=== PATIENT | male | born 1940 | race Caucasian/White ===

== ENCOUNTER 2018-06-16 16:57 | Emergency (ER) | payer MEDICARE, BC ==
[2018-06-16 17:57] LABS: BASOPHILS % (AUTO) 0 % (0-3); EOSINOPHILS % (AUTO) 0 % (0-9); HEMATOCRIT 48 % (39-53); HEMOGLOBIN 15.3 gm/dl (13.5-17.7); LYMPHOCYTES % (AUTO) 4.7 % (10-50); MEAN CORPUSCULAR HEMOGLOBIN 29.5 pg (27.0-32.0); MEAN CORPUSCULAR HGB CONC 31.7 gm/dl (32.0-36.0); MEAN CORPUSCULAR VOLUME 93 fL (80-100); MONOCYTES % (AUTO) 4.8 % (0-12); NEUTROPHILS % (AUTO) 90.3 % (37-80)
[2018-06-16 18:07] LABS: INR 1.67 (0.86-1.12)
[2018-06-16] MEDS ORDERED: SODIUM CHLORIDE 0.9% FLUSH 10 ML SOL IV PRN (18:11)
[2018-06-16 18:16] LABS: ALBUMIN 3.3 gm/dl (3.4-5.0); BILIRUBIN,TOTAL 0.6 mg/dl (0.2-1.0); CALCIUM 8.8 mg/dl (8.5-10.1); CARBON DIOXIDE 27.1 mEq/L (21-32); CREATININE 1.42 mg/dl (0.80-1.30); POTASSIUM 4.8 mMol/L (3.5-5.1); TOTAL PROTEIN 7.2 gm/dl (6.4-8.2)
[2018-06-16 23:36] VITALS: TEMP 99.5
[2018-06-16 23:37] VITALS: BP 119/76; PULSE 132; RESP 19; O2SAT 94
== END 2018-06-16 20:15 | disposition home or self-care (01) | DRG 690 ==
LOC: ED 16:57
DX: N39.0 Urinary tract infection, site not specified (principal); Z79.01 Long term (current) use of anticoagulants; M54.9 Dorsalgia, unspecified; I48.91 Unspecified atrial fibrillation
CPT/HCPCS: 74177; 80053; 85025; 85610; 99283; 99284; Q9967

== ENCOUNTER 2018-08-10 06:30 | Day surgery (SDC) | payer MEDICARE, BC ==
[~2018-08-10 06:30] MED LIST: ACETAZOLAMIDE 250 MG PO ONE
[2018-08-10] MEDS: CYCLOPENTOLATE 1% SOL ONE ×2 (06:42→06:54)
[2018-08-10] MEDS: PROPARACAINE HCL 0.5% OPHTHALMIC SOL ONE ×3 (06:42→07:57)
[2018-08-10] MEDS: PHENYLEPHRINE HCL 10% OPHTHAL SOL ONE ×2 (06:42→06:54)
[2018-08-10] MEDS: KETOROLAC 0.5% OPTH 60 DROP SOL ONE ×2 (06:43→06:55)
[2018-08-10] MEDS ORDERED: FENTANYL 100MCG/2ML SOL ONE (07:36)
[2018-08-10] MEDS ORDERED: MIDAZOLAM 2 MG/2 ML SOL ONE (07:36)
[2018-08-10] MEDS ORDERED: LIDOCAINE HCL 1% MPF 30 SOL ONE (07:50)
[2018-08-10] MEDS ORDERED: BSS 500 ML 500 ML IR ONE (07:50)
[2018-08-10] MEDS ORDERED: POVIDONE IODINE 5% SOL ONE (07:50)
[2018-08-10] MEDS: IMPRIMIS ONE ×2 (08:08→08:12)
[2018-08-10] MEDS ORDERED: OFLOXACIN 0.3% OPHTHAL 1 DROP SOL RIGHTEYE ONE (08:13)
[2018-08-10 08:27] VITALS: RESP 20; TEMP 98
[2018-08-10 08:33] VITALS: BP 115/73; PULSE 71; O2SAT 95
== END 2018-08-10 08:45 | disposition home or self-care (01) | DRG 125 ==
LOC: SURG 06:30
PROVIDERS: ATTEND Ophthalmology
DX: H25.89 Other age-related cataract (principal)
CPT/HCPCS: J2250; J3010; A9270-GY; J2001

== ENCOUNTER 2018-09-14 09:24 | Day surgery (SDC) | payer MEDICARE, BC ==
[2018-09-14] MEDS ORDERED: ACETAZOLAMIDE 250 MG PO ONE (09:33)
[2018-09-14] MEDS: CYCLOPENTOLATE 1% SOL ONE ×2 (09:48→10:05)
[2018-09-14] MEDS: PROPARACAINE HCL 0.5% OPHTHALMIC SOL ONE ×3 (09:48→10:40)
[2018-09-14] MEDS: PHENYLEPHRINE HCL 10% OPHTHAL SOL ONE ×2 (09:49→10:06)
[2018-09-14] MEDS: KETOROLAC 0.5% OPTH 60 DROP SOL ONE ×2 (09:49→10:06)
[2018-09-14] MEDS ORDERED: FENTANYL 100MCG/2ML SOL ONE (10:17)
[2018-09-14] MEDS ORDERED: MIDAZOLAM 2 MG/2 ML SOL ONE (10:17)
[2018-09-14] MEDS ORDERED: POVIDONE IODINE 5% SOL ONE (10:33)
[2018-09-14] MEDS ORDERED: LIDOCAINE HCL 1% MPF 30 SOL ONE (10:33)
[2018-09-14] MEDS ORDERED: BSS 500 ML 500 ML IR ONE (10:33)
[2018-09-14] MEDS: IMPRIMIS ONE ×2 (10:54→10:58)
[2018-09-14] MEDS ORDERED: OFLOXACIN 0.3% OPHTHAL 1 DROP SOL LEFTEYE ONE ×2 (10:55→10:59)
[2018-09-14 11:08] VITALS: BP 111/73; PULSE 76; RESP 16; TEMP 98.2; O2SAT 95
== END 2018-09-14 11:20 | disposition home or self-care (01) | DRG 125 ==
LOC: SURG 09:24
PROVIDERS: ATTEND Ophthalmology
DX: H25.89 Other age-related cataract (principal)
CPT/HCPCS: J2250; J3010; A9270-GY; J2001